=== PATIENT | male | born 1945 | race Caucasian/White ===

== ENCOUNTER 2021-06-08 17:35 | Inpatient (IN) | payer MEDICARE, BC ==
[~2021-06-08] VITALS: Ht 165.1 cm; Wt 67.2 kg
[2021-06-08] MEDS ORDERED: NITROSTAT0.4 MG PO (21:38)
[2021-06-08] MEDS ORDERED: LOPRESSOR 50 MG50 MG PO (21:38)
[2021-06-08] MEDS ORDERED: FLOMAX 0.4 MG0.4 MG PO (21:38)
[2021-06-08] MEDS ORDERED: RESTORIL30 MG PO (21:39)
[2021-06-08] MEDS ORDERED: ASPIRIN CHEWABL81 MG PO (21:39)
[2021-06-08] MEDS ORDERED: FEXOFENADINE H180 MG PO (21:40)
[2021-06-08] MEDS ORDERED: PREDNISONE 20 M20 MG PO (21:40)
[2021-06-08] MEDS ORDERED: KENALOG CREAM 080 GM TOP (21:40)
[2021-06-08] MEDS ORDERED: CIPRODEX OTIC7.5 ML EARBOTH (21:41)
[2021-06-08] MEDS ORDERED: HYDROCODONE-AC1 EAC1 PO (21:42)
[2021-06-08] MEDS ORDERED: CYCLOBENZAPRINE10 MG PO (21:43)
[2021-06-08 22:24] LABS: HEMOGLOBIN 14.5 gm/dl (14.0-17.5); RED BLOOD COUNT 4.44 M/UL (4.20-5.50); WHITE BLOOD COUNT 12.1 K/UL (4.5-11.0)
[2021-06-08 22:52] LABS: BUN/CREATININE RATIO 19 (0-10)
[2021-06-09 06:11] LABS: HEMOGLOBIN 13.9 gm/dl (14.0-17.5); RED BLOOD COUNT 4.31 M/UL (4.20-5.50)
[2021-06-09 06:13] LABS: WHITE BLOOD COUNT 7.3 K/UL (4.5-11.0)
[2021-06-09 06:36] LABS: BUN/CREATININE RATIO 21 (0-10)
[2021-06-10 10:40] LABS: RED BLOOD COUNT 4.03 M/UL (4.20-5.50)
[2021-06-10 10:45] LABS: BUN/CREATININE RATIO 25 (0-10)
[2021-06-10 10:48] LABS: WHITE BLOOD COUNT 11.4 K/UL (4.5-11.0)
[2021-06-11 07:39] LABS: HEMOGLOBIN 13.7 gm/dl (14.0-17.5); RED BLOOD COUNT 4.26 M/UL (4.20-5.50); WHITE BLOOD COUNT 9.1 K/UL (4.5-11.0)
--- NOTE | 2021-06-11 22:23 | NUR ---
PT TRANSFERRED TO 5106 PER MD ORDER X2 NURSE ASSIST.
[2021-06-12 05:30] LABS: HEMOGLOBIN 12.9 gm/dl (14.0-17.5); RED BLOOD COUNT 4.01 M/UL (4.20-5.50); WHITE BLOOD COUNT 10.9 K/UL (4.5-11.0)
[2021-06-12 06:00] LABS: BUN/CREATININE RATIO 20 (0-10)
[2021-06-13 06:17] LABS: HEMOGLOBIN 13.3 gm/dl (14.0-17.5); RED BLOOD COUNT 4.19 M/UL (4.20-5.50); WHITE BLOOD COUNT 9.1 K/UL (4.5-11.0)
[2021-06-13 06:42] LABS: BUN/CREATININE RATIO 16 (0-10)
--- NOTE | 2021-06-13 19:33 | NUR ---
WHEN I GOT REPORT PATIENT WAS UP, STAGGERING AROUND ROOM. TRIED TO SET THE BED ALARM, PATIENT GOT VERY HOSTILE. PATIENT REFUSES TO HAVE A BED OR STRIP ALARM ON. WILL INCREASE ROUNDING FREQUENCY. RISKS AND CONSEQUENCES OF HAVING A FALL WERE EXPLAINED TO THE PATIENT. HE VERBALIZED UNDERSTANDING AND STILL REFUSED THE ALARM.
[2021-06-14 03:45] LABS: RED BLOOD COUNT 4.13 M/UL (4.20-5.50); WHITE BLOOD COUNT 11.3 K/UL (4.5-11.0)
--- NOTE | 2021-06-14 18:48 | NUR ---
patient episode low pulse ox, during this episode, patient was up in chair, was on bsc and using the bathroom and oxygen tubing not on the right nares. patient verbally abusive when educating and correcting the oxygen. requested for RT to checked patient r/t pulse ox staying below 80's and below 90's. patient with no s/sx of respiratory distress.
[2021-06-15 03:24] LABS: HEMOGLOBIN 13.3 gm/dl (14.0-17.5); RED BLOOD COUNT 4.34 M/UL (4.20-5.50)
[2021-06-15 03:45] LABS: BUN/CREATININE RATIO 23 (0-10)
--- NOTE | 2021-06-15 13:33 | NUR ---
patient pulse ox jumping from above 90's to below 80's. and with low 80's patient most of the time is doing activity, using the bathroom etc. patient when coached with deep breathing exercises and oxygen up to 15 L will be back to 90% above. reported this episode to dr. galvez and acknoweldged. RT available when needed
--- NOTE | 2021-06-16 05:55 | NUR ---
PATIENT WAS ON 15L HIGH FLOW 02 SATTING LOW TO MID 80S. COULD NOT GET 02 SAT ABOVE 85. CALLED RESPIRATORY WHO PUT THE PATIENT ON AIRVO. 60L AT 100% ONLY BROUGHT THE PATIENT TO O2 SAT OF 90%. AFTER HE CAME BACK UP, WE TURNED THE AIRVO BACK DOWN TO 60L AT 60% FiO2. PATIENT IS CURRENTLY SATTING 93%.
[2021-06-20 02:24] LABS: HEMOGLOBIN 14.3 gm/dl (14.0-17.5); RED BLOOD COUNT 4.46 M/UL (4.20-5.50); WHITE BLOOD COUNT 9.9 K/UL (4.5-11.0)
[2021-06-21 08:43] LABS: HEMOGLOBIN 15.8 gm/dl (14.0-17.5); RED BLOOD COUNT 4.88 M/UL (4.20-5.50)
[2021-06-21 08:44] LABS: WHITE BLOOD COUNT 20.5 K/UL (4.5-11.0)
[2021-06-22 03:32] LABS: HEMOGLOBIN 14.7 gm/dl (14.0-17.5); RED BLOOD COUNT 4.6 M/UL (4.20-5.50)
--- NOTE | 2021-06-25 04:39 | NUR ---
PT WAS VERY ANXIOUS AND IRRITABLE UPON ARRIVAL TO SHIFT. DR. PERERA ARRIVED TO SEE PT AT BEGINNING OF SHIFT FOR DAILY ROUND/CHECK-UP. DR. PERERA AWARE OF PT CONDITION AND THAT PT ONLY RECEIVED ONE SINGLE DOSE OF MEDICATION, A PRESCRIBED XANAX, AT APPROX 1704 ON 06/24/21. STATED SHE WAS CHANGING PT MEDICATIONS APPROPRIATELY TO ACCOMADATE FOR COMFORT. PT HAS SLEPT FOR ENTIRE SHIFT AFTER FIRST DOSE OF ATIVAN AND MORPHINE EXCEPT FOR THE TIME THAT PT WAS GIVEN DOSES OF MEDICATIONS. PT HAS SLEPT AND RESTED WELL ENTIRE SHIFT. PT O2 EVEN ABLE TO BE TITRATED TO 2 L/MIN VIA HFNC. PT TOLERATING WELL.
[2021-06-28] MEDS ORDERED: TRAZODONE HCL50 MG PO (11:04)
[2021-06-28] MEDS ORDERED: DURAGESIC 12 M1 EACH TOP (11:04)
== END 2021-06-28 18:33 | DRG 177 ==
LOC: CCU 21:10 → PROG CARE 21:10 → M/S 21:10 → CCU 21:32 → PROG CARE 06-09 06:04 → M/S 06-11 22:43 → PROG CARE 06-19 23:32 → M/S 06-22 18:19
PROVIDERS: Internal Medicine; ADMIT Internal Medicine
PROC: 8E0ZXY6 Isolation (ICD-10-PCS; principal; 2021-06-09)
PROC: XW033E5 Introduction of Remdesivir Anti-infective into Peripheral Vein, Percutaneous Approach, New Technology Group 5 (ICD-10-PCS; 2021-06-09)
PROC: 3E0333Z Introduction of Anti-inflammatory into Peripheral Vein, Percutaneous Approach (ICD-10-PCS; 2021-06-09)
PROC: B24BZZZ Ultrasonography of Heart with Aorta (ICD-10-PCS; 2021-06-09)
PROC: 3E04329 Introduction of Other Anti-infective into Central Vein, Percutaneous Approach (ICD-10-PCS; 2021-06-09)
PROC: 5A0955A Assistance with Respiratory Ventilation, Greater than 96 Consecutive Hours, High Flow/Velocity Cannula (ICD-10-PCS; 2021-06-10)
DX: U07.1 COVID-19 (principal); J12.82 Pneumonia due to coronavirus disease 2019; I26.99 Other pulmonary embolism without acute cor pulmonale; J96.01 Acute respiratory failure with hypoxia; J15.9 Unspecified bacterial pneumonia; J93.83 Other pneumothorax; J90 Pleural effusion, not elsewhere classified; I82.433 Acute embolism and thrombosis of popliteal vein, bilateral; I82.491 Acute embolism and thrombosis of other specified deep vein of right lower extremity; K21.9 Gastro-esophageal reflux disease without esophagitis; L89.151 Pressure ulcer of sacral region, stage 1; I27.20 Pulmonary hypertension, unspecified; I12.9 Hypertensive chronic kidney disease with stage 1 through stage 4 chronic kidney disease, or unspecified chronic kidney disease; N18.9 Chronic kidney disease, unspecified; Z96.0 Presence of urogenital implants; Z87.442 Personal history of urinary calculi; Z95.1 Presence of aortocoronary bypass graft; Z98.890 Other specified postprocedural states; N40.1 Benign prostatic hyperplasia with lower urinary tract symptoms; R79.89 Other specified abnormal findings of blood chemistry; Z66 Do not resuscitate; F41.9 Anxiety disorder, unspecified; N20.0 Calculus of kidney; Z88.2 Allergy status to sulfonamides; Z82.49 Family history of ischemic heart disease and other diseases of the circulatory system; Z87.891 Personal history of nicotine dependence; Z79.01 Long term (current) use of anticoagulants; Z51.5 Encounter for palliative care; Z79.82 Long term (current) use of aspirin; Z79.899 Other long term (current) drug therapy
CPT/HCPCS: ECHO; 36415; 71045; 80048; 80053; 82962; 83735; 84484; 85025; 85027; 85730; 93005; 93306; 93970; 94640; 94660; 94664; 94760; 97110-GP-CQ; 97116-GP-CQ; 97162; 97530; 97530-GP-CQ; A6212; J0248; J0456; J0692; J1100; J1644; J2060; J2270; J7030; J7050; U0002